=== PATIENT | female | born 1965 | race Caucasian/White ===

== ENCOUNTER 2024-09-30 13:26 | Emergency (ER) | payer BC, SELFPAY ==
--- NOTE | ~2024-09-30 | CT_ITS ---
EXAMINATION: CT ANGIOGRAM HEAD AND NECK CLINICAL INFORMATION: Nausea and vomiting, dizziness, history of brain aneurysm. COMPARISON: None available. TECHNIQUE: Noncontrast axial imaging of the head was performed. This was followed by test bolus sequences and head and neck intravenous bolus administration 65 mL of Omnipaque 350. Helical imaging was performed in the axial plane from the aortic arch to the skull vertex. The data was processed at the certified performance technologist's workstation for generation of MIP sequences. Angled MIPs and volume rendered reformatted images were also generated at an offline 3D workstation. Stenoses are assessed in accordance with NASCET criteria unless otherwise indicated. This CT examination was performed using dose optimization techniques as appropriate, variously including the following: *Automated exposure control *Adjustment of mA and/or kV according to patient size (this includes techniques or standardized protocols for targeted exams where dose is matched to indication/reason for exam; i.e. extremities or head) *Use of iterative reconstruction technique FINDINGS: NONCONTRAST HEAD CT: There is no evidence of intracranial hemorrhage or extra-axial fluid collection. There is no mass effect, or edema. No CT evidence of acute territorial infarct. Ventricles, sulci, and cisterns are normal in size and configuration for patient age. No hydrocephalus. No midline shift. No significant white matter abnormalities. Partial empty sella. Globes and orbital contents image normally. No extracranial soft tissue abnormalities. The paranasal sinuses, mastoid air cells, and tympanic cavities are normally aerated. No suspicious bony abnormalities. NECK CTA: -AORTIC ARCH: Normal in caliber. 2-vessel branching pattern. -GREAT VESSEL ORIGINS: Widely patent. No stenosis. -RIGHT COMMON CAROTID ARTERY: Normal in course and caliber to the level of the bifurcation. -CERVICAL RIGHT INTERNAL CAROTID ARTERY: Normal opacification without focal stenosis or occlusion. -LEFT COMMON CAROTID ARTERY: Normal in course and caliber to the level of the bifurcation. -CERVICAL LEFT INTERNAL CAROTID ARTERY: Normal opacification without focal stenosis or occlusion. -CERVICAL RIGHT VERTEBRAL ARTERY: Codominant. Normal in course and caliber into the skull base. -CERVICAL LEFT VERTEBRAL ARTERY: Codominant. Normal in course and caliber into the skull base. OTHER, SOFT TISSUES: -No lymphadenopathy or mass. No abnormal fluid collection or soft tissue swelling. -Normal thyroid. -Imaged superior mediastinal structures normal. -Imaged lung apices clear. CTA OF THE BRAIN: -INTRACRANIAL INTERNAL CAROTID ARTERIES: Mild short segment fusiform dilatation of the left cavernous ICA up to 4.7 mm, spanning a length of approximately 10 mm. Intracranial ICAs are otherwise normal in course and caliber. -RIGHT ANTERIOR CEREBRAL ARTERY: Normal A1 segment.. Normal arborization of the distal segments. -LEFT ANTERIOR CEREBRAL ARTERY: Normal A1 segment.. Normal arborization of the distal segments. -ANTERIOR COMMUNICATING ARTERY: Normal. -RIGHT MIDDLE CEREBRAL ARTERY: Normal M1 segment of the MCA without focal stenosis or occlusion. Normal arborization of the distal segments. -LEFT MIDDLE CEREBRAL ARTERY: Normal M1 segment of the MCA without focal stenosis or occlusion. Normal arborization of the distal segments. -RIGHT VERTEBRAL ARTERY V4: Normal in course and caliber. There is a right AICA/PICA. -LEFT VERTEBRAL ARTERY V4: Normal in course and caliber. Normal PICA branch. -BASILAR ARTERY: Normal without focal stenosis or occlusion. Normal appearance of the proximal superior cerebellar arteries. Normal basilar tip. -RIGHT POSTERIOR CEREBRAL ARTERY: Normal P1 segment. Normal opacification of the distal SHOE POLISHER segments. -LEFT POSTERIOR CEREBRAL ARTERY: Normal P1 segment. Normal opacification of the distal SHOE POLISHER segments. -POSTERIOR COMMUNICATING ARTERIES: Not well seen. Normal opacification of the superior sagittal, straight, transverse, and sigmoid sinuses. No venous thrombosis. No space-occupying hemorrhage or definite evolving infarct. CT/CT angio head neck IMPRESSION: NONCONTRAST HEAD CT: 1. No evidence of intracranial hemorrhage or mass effect. No CT evidence of acute territorial infarct. CTA NECK: 1. No evidence of significant stenosis, occlusion, dissection, or aneurysm of the major cervical arterial vasculature. CTA HEAD: 1. No evidence of significant stenosis, occlusion, or dissection of the major intracranial arterial vasculature. 2. 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 This spans a length of approximately 10 mm. 3. There are patent major cortical and dural venous sinuses. Electronically signed by: Chon Stevens MD 09/30/2024 04:48 PM EDT
[2024-09-30 13:32] VITALS: BP 136/78; PULSE 116; RESP 18; TEMP 36.2; O2SAT 100; BMI 20.8
--- NOTE | 2024-09-30 13:39 | ECG_ITS ---
Test Reason : dizziness Blood Pressure : */* mmHG Vent. Rate : 77 BPM Atrial Rate : 77 BPM P-R Int : 132 ms QRS Dur : 84 ms QT Int : 378 ms P-R-T Axes : 37 49 62 degrees QTcB Int : 427 ms Normal sinus rhythm Septal infarct , age undetermined Abnormal ECG No previous ECGs available Referred By: Ramon James Electronically Signed By: HALLE KOCH MD
--- NOTE | 2024-09-30 13:39 | ED_ITS ---
HPI - Neuro Symptoms/Deficit General Chief Complaint: Neuro Symptoms/Deficit Stated Complaint: veritgo sweats confusion Time Seen by Provider: 09/30/24 14:47 Source: patient Mode of arrival: ambulatory Limitations: no limitations History of Present Illness ED Provider: ASHUTOSH HPI Narrative: 58 yo female no sig PMH follows at [facility] with Dr. Shrestha for 3 very small brain aneurysms no prior procedures who notes started with sudden onset of room spinning and feeling very nauseated. She has mild head pressure she denies numbness, weakness, vision changes, URI symptoms, CP/SOB she states she just doesn't feel good. The symptoms come and go are very rapid. She also fell last night but no headstrike no LOC. She states she just doesn't feel good. No GIB or infectious symptoms reported. Onset (ago): day(s) (since Sunday) Location: other History of same: No Severity: moderate Quality: intermittent Relieving factors: none Exacerbating factors: other (movement) Context: sudden onset On Anticoagulants: No Associated symptoms: nausea/vomiting and other (fatigue, poor malaise, dizziness) Treatments Prior to Arrival: other (ibuprofen) Related Data Allergies Allergy/AdvReac Type Severity Reaction Status Date / Time No Known Allergies Allergy Verified 09/30/24 13:36 Review of Systems 2 Review of Systems: Constitutional : No Fever, No Chills, pos Fatigue ENT/Mouth : No sore throat, No Rhinorrhea Eyes: No Eye Pain, No Swelling, No Redness Cardiovascular : No Chest Pain, No SOB, No Dyspnea on Exertion Respiratory : No Cough, No Sputum Gastrointestinal : No Nausea, No Vomiting, No Diarrhea, No abdominal Pain Genitourinary : No Dysuria, No Urinary Frequency, No Hematuria, Musculoskeletal : No joint pain, No Myalgias, No Joint Swelling Skin : No Skin Lesions, No rash Neuro : No Weakness, No Numbness, pos Dizziness, positive Headache Psych : No Anxiety/Panic, No Depression All other systems reviewed and are negative [facility] Past Medical History Attestation statement: The following information was validated with the patient. Source: old records reviewed Medical History (Updated 10/01/24 @ 00:00 by Suzanne Bazan) Brain aneurysm Social History Social History (Updated 09/30/24 @ 15:10 by Germania Mcdaniel DO) Patient Tobacco Use Status: Never used Tobacco Smoked in Last 30 Days: No Advance Directives: No Advance Directives Information Provided: Yes Do you have a plan to hurt others: No Plan Patient : No Physical Exam 2 Vital Signs: Vital Signs: Last Vital Signs Temp 98.4 F 09/30/24 19:33 Pulse 78 09/30/24 19:33 Resp 18 09/30/24 19:33 BP 141/74 H 09/30/24 19:33 Pulse Ox 100 09/30/24 13:32 O2 Del Method Room Air 09/30/24 13:32 BMI result Body Mass Index 20.8 Appearance: Alert. Oriented X3. No acute distress. Eyes: Pupils equal, round and reactive to light. ENT: Pharynx normal. Neck: Normal inspection. Neck supple. CVS: Normal heart rate and rhythm. Pulses normal. Respiratory: No respiratory distress. Breath sounds normal. Abdomen: Soft and nontender. Skin: Skin warm and dry. Normal skin color. Normal skin turgor. Extremities: No lower extremity edema. No calf ttp Neuro: Oriented X 3. No motor deficit. No sensory deficit. CN2-12 intact Course Course Course Narrative: RME: 58 yold female presents to the ED for dizziness vertigo lightheadedness and increased confusion for the past 3 days. Patient states she passed out last night. Patient states history of brain aneurysm. Patient denies any change in vision. No obvious neuro deficits on exam but patient explained extreme dizziness. Charge nurse made aware. Labs EKG head CT ordered. Patient is having symptoms for 3 days would not called stroke due to symptoms for 3 days. Medications Administered Discontinued Medications Generic Name Dose Route Start Last Admin Trade Name Marceloq PRN Reason Stop Dose Admin Lactated Ringer's 1,000 mls @ 999 mls/hr 09/30/24 15:05 09/30/24 17:10 Lr IV 09/30/24 16:05 Infused .Q1H1M ONE Infusion Lactated Ringer's 1,000 mls @ 999 mls/hr 09/30/24 17:08 09/30/24 18:24 Lr IV 09/30/24 18:08 Infused .Q1H1M ONE Infusion Iohexol 100 ml 09/30/24 16:23 09/30/24 16:23 Iohexol 350 Mg/Ml 100 Ml Infus..Btl IV 09/30/24 16:24 65 ml ONCE ONE Administration Meclizine HCl 25 mg 04/15/25 17:08 09/30/24 17:22 Meclizine Hcl 25 Mg Tablet PO 09/30/24 17:09 25 mg ONCE ONE Administration Ondansetron HCl 4 mg 09/30/24 15:05 09/30/24 15:18 Ondansetron Hcl 4 Mg/2 Ml Vial IVPUSH 09/30/24 15:06 4 mg ONCE ONE Administration Medical Decision Making Medical Decision Making [facility] Narrative: 58 yo female with PMH of stable brain aneurysms and 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 She has no CP/SOB or GIB symptoms at this time she has no localizing signs will obtain labs, EKG, CTA of head and neck. Her symptoms are really I don't feel well and dizziness Differential Diagnosis Differential Diagnoses: The differential diagnosis associated with the presentation includes infectious or metabolic source, aneurysm, anemia, dehydration Admission/Observation Consideration of admission/observation: Escalation of care including admission/observation considered feels better stable for DC up and walking I did offer admission for MRI but she declines last aneurysm was 1.9 on MRA but she is going to call her NSGY doctor in the AM declines admission Lab Data [facility] Lab Attestation statement: I reviewed the patient's lab results. 09/30/24 14:05 09/30/24 14:05 Labs: Lab Results 09/30/24 09/30/24 Range/Units 14:05 15:17 WBC 5.8 (4.8-10.8) X10*3/uL RBC 4.40 (4.20-5.50) X10*6/uL Hgb 13.2 (12.0-16.0) g/dl Hct 36.7 L (37.0-47.0) % MCV 83.4 (80.0-98.0) fL MCH 30.0 (27.0-33.0) pg MCHC 36.0 H (31.0-35.0) g/dl RDW 12.5 (11.0-16.0) % Plt Count 156 L (160-400) X10*3/uL MPV 9.1 L (9.4-12.3) fL Immature Gran % (Auto) 0.2 (0.0-0.4) % Neut % (Auto) 67.4 (45-73) % Lymph % (Auto) 22.8 (20-40) % Snyder % (Auto) 8.1 (2-11) % Eos % (Auto) 1.0 (0-4) % Baso % (Auto) 0.5 (0-2) % Lymph # (Auto) 1.3 (1.2-4.9) X10*3/uL Snyder # (Auto) 0.5 (0.1-1.2) X10*3/uL Eos # (Auto) 0.1 (0.0-0.4) X10*3/uL Baso # (Auto) 0.0 (0.0-0.2) X10*3/uL Abs Immat Gran (auto) 0.01 (0.00-0.03) X10*3/uL Absolute Neuts (auto) 3.9 (2.0-8.3) x10*3/uL Absolute Nucleated RBC 0.000 (0.0-0.012) X10*3/uL Nucleated RBC % (auto) 0.0 (0.0-0.2) /100WBC PT 10.9 (10.9-12.4) SEC INR 0.9 (0.9-1.1) APTT 27.2 (26.0-36.8) SEC Sodium 136 (135-145) mmol/L Potassium 4.4 (3.3-5.1) mmol/L Chloride 106 (96-108) mmol/L Carbon Dioxide 18 L (22-29) mmol/L Anion Gap 16 (12-20) BUN 17 H (9-16) mg/dL Creatinine 0.92 (0.5-1.4) mg/dL Estim Creat Clear Calc 39.6 Estimated GFR > 60 Random Glucose 77 (60-115) mg/dL Calcium 9.8 (8.4-10.2) mg/dL Total Bilirubin 1.3 H (0.0-1.0) mg/dL AST 24 (5-31) U/L ALT 10 (0-31) U/L Alkaline Phosphatase 91 (39-117) U/L Troponin I High Sens < 2.7 (<3.5-17.0) ng/L C-Reactive Protein 0.35 (< or = 0.50) mg/dL Total Protein 7.2 (6.5-8.0) g/dL Albumin 4.3 (3.5-5.0) g/dL Influenza Type A (PCR) NEGATIVE (Negative) Influenza Type B (PCR) NEGATIVE (Negative) RSV RNA Qual (PCR) NEGATIVE (Negative) SARS-CoV-2 RNA (RT-PCR) NEGATIVE (Negative) Independent Interpretation I performed an independent interpretation of an: EKG and CT Scan (aneurysm noted) Interpretation: Rate: 77 Rhythm:NSR [place]: normal Normal P waves. Normal LEON. Normal QRS complex. ST T wave : no VAL, inverted t wave V1 qTC: 427 prior studies: no acute ischemia The study has been interpreted contemporaneously by me. . Radiology Impression Discussion of test interpretation with radiology: I have reviewed the radiologist's reading. Independent Historian Clinical information obtained from an independent historian. History obtained from or confirmed by: Other (family) Discharge Plan Discharge Clinical Impression: Dizziness Patient Disposition: Home, Self-Care Instructions: Dizziness (ED) Additional Instructions: at this time labs reassuring normal ortho vital signs CTA shows aneurysm but no leakage and no stroke if you feel worse or change your mind you can come back at any time for admission and MRI call your doctor tomorrow AM CT/CT angio head neck IMPRESSION: NONCONTRAST HEAD CT: 1. No evidence of intracranial hemorrhage or mass effect. No CT evidence of acute territorial infarct. CTA NECK: 1. No evidence of significant stenosis, occlusion, dissection, or aneurysm of the major cervical arterial vasculature. CTA HEAD: 1. No evidence of significant stenosis, occlusion, or dissection of the major intracranial arterial vasculature. 2. 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 This spans a length of approximately 10 mm. 3. There are patent major cortical and dural venous sinuses. Interventions: ED Discharge Assessment Last Done: 09/30/24 19:33 Discharge Date/Time: 09/30/24 19:34 Print Language: Belizean
[2024-09-30 14:09] LABS: MANUAL DIFF FLAG NO
[2024-09-30 14:12] LABS: Basophils Percent Auto 0.5 % (0-2); Eosinophils Absolute Auto 0.1 X10*3/uL (0.0-0.4); Hematocrit 36.7 % (37.0-47.0); Hemoglobin 13.2 g/dl (12.0-16.0); Imm Gran Abs Auto 0.01 X10*3/uL (0.00-0.03); Imm Gran Pct Auto 0.2 % (0.0-0.4); Lymphocytes Absolute Auto 1.3 X10*3/uL (1.2-4.9); Lymphocytes Percent Auto 22.8 % (20-40); Mean Corpuscular Volume 83.4 fL (80.0-98.0); Mean Platelet Volume 9.1 fL (9.4-12.3); Monocytes Absolute Auto 0.5 X10*3/uL (0.1-1.2); Monocytes Percent Auto 8.1 % (2-11); Neutrophils Absolute Auto 3.9 x10*3/uL (2.0-8.3); Neutrophils Percent Auto 67.4 % (45-73); Platelet Count 156 X10*3/uL (160-400); Red Cell Distribution Width 12.5 % (11.0-16.0); White Blood Count 5.8 X10*3/uL (4.8-10.8)
[2024-09-30 14:23] LABS: INTERNATIONAL NORM RATIO 0.9 (0.9-1.1); Prothrombin Time 10.9 SEC (10.9-12.4)
[2024-09-30 14:26] LABS: Partial Thromboplastin Time 27.2 SEC (26.0-36.8)
[2024-09-30 14:35] LABS: Anion Gap 16 (12-20)
[2024-09-30 14:38] LABS: Alanine Aminotransferase 10 U/L (0-31); Albumin Level 4.3 g/dL (3.5-5.0); Aspartate Amino Transferase 24 U/L (5-31); Bilirubin Total 1.3 mg/dL (0.0-1.0); Blood Urea Nitrogen 17 mg/dL (9-16); Calcium 9.8 mg/dL (8.4-10.2); Carbon Dioxide 18 mmol/L (22-29); Chloride 106 mmol/L (96-108); Creatinine Clr Calc Pharmacy 39.6; Estimated Glomerular Filt Rate > 60; Glucose Random 77 mg/dL (60-115); Potassium 4.4 mmol/L (3.3-5.1); Sodium 136 mmol/L (135-145); Total Protein 7.2 g/dL (6.5-8.0)
[2024-09-30 14:48] LABS: Troponin-I High Sensitivity < 2.7 ng/L (<3.5-17.0)
[2024-09-30] MEDS: ondansetron HCL 4 MG/2 ML VIAL IVPUSH (15:18)
[2024-09-30] MEDS: Lactated Ringers 1,000 ML 999 ML IV ×2 (15:20→17:23)
[2024-09-30 15:28] LABS: C Reactive Protein 0.35 mg/dL (< or = 0.50)
[2024-09-30 16:05] LABS: Influenza A PCR NEGATIVE (Negative); Influenza B PCR NEGATIVE (Negative); Resp Syncy Virus RNA Qual PCR NEGATIVE (Negative); SARS COV2 PCR INHOUSE NEGATIVE (Negative)
[2024-09-30] MEDS: iohexoL 350 MG/ML 100 ML INFUS..BTL IV (16:23)
[2024-09-30 16:51] LABS: Alkaline Phosphatase 91 U/L (39-117)
[2024-09-30 17:07] VITALS: BP 121/62; PULSE 81
[2024-09-30 17:08] VITALS: BP 126/69; BP 141/74; PULSE 78; PULSE 80
[2024-09-30] MEDS: Meclizine HCl 25 MG TABLET PO (17:22)
--- OUTSIDE RECORDS SUMMARY | 2024-09-30 17:59 | XMS_ITS ---
Author Name [facility] Organization Unknown Care Team Organization Name Specialty Phone Email Start Date End [facility] te [facility] the [facility] ([facility]) 05/02/2024
--- OUTSIDE RECORDS SUMMARY | 2024-09-30 17:59 | XMS_ITS | Clinical Summary ---
Author Organization [facility] Address [address] [place] [address] Care Team Providers Care Tractor Technician Name Role Phone Eboni Medellin MD Primary Care Provider [phone] Allergies No known active allergies Medications Medication Sig Dispensed Refills Start Date End Date Status Riboflavin 400 MG CAPS Take 400 mg by mouth daily. 30 capsule 3 03/07/2023 Active Ubrogepant (Ubrelvy) 100 MG TABS Take 100 mg by mouth daily. 30 tablet 3 06/05/2023 Active Social History Tobacco Use Types Packs/Day Years Used Date Smoking Tobacco: Never Assessed Sex and Gender Information Value Date Recorded Sex Assigned at Female 05/23/2023 11:13 AM EST Gender Identity Not on file Sexual Orientation Not on file Job Start Date Occupation Industry Not on file Not on file Not on file Last Filed Vital Signs Vital Sign Reading Time Taken Comments Blood Pressure 113/77 03/07/2023 9:24 AM EDT Pulse 86 03/07/2023 9:24 AM EDT Temperature - - Respiratory Rate 16 03/07/2023 9:24 AM EDT Oxygen Saturation 95% 03/07/2023 9:24 AM EDT Inhaled Oxygen Concentration - - Weight 42.7 kg (94 lb 3.2 oz) 03/07/2023 9:24 AM EDT Height 144.8 cm (4' 9 ) 03/07/2023 9:24 AM EDT Body Mass Index 20.38 03/07/2023 9:24 AM EDT Plan of Treatment Health Maintenance Due Date Last Done Comments Hepatitis C Screening 1965 COVID-19 Vaccine (#1) 05/15/1964 Depression Screening 1975 Preventative Health Evaluation 11/12/1981 Cervical Cancer Screening (P ap Smear) 11/12/1984 Colon Cancer Screening (Colonoscopy) 11/12/2008 Breast Cancer Screening (Mammogram) 11/12/2013 Shingrix-Zoster Vaccine (1 of 2) 11/12/2013 DTap / Tdap / Td (2 - Td or Tdap) 02/16/2022 012 Influenza Vaccine (#1) 2024 RSV Adult > 60+ Yrs or Pregn ant (1 - 1-dose 75+ series) 11/12/2038 Hepatitis B Vaccines Aged Out No long er eligible based on patient's age to complete this topic Pneumococcal Vaccine Aged Out No long er eligible based on patient's age to complete this topic RSV Ped < 20 months Aged Out No longe r eligible based on patient's age to complete this topic Care Teams Tractor Technician Relationship Specialty Start Date End Date Eboni Medellin MD PCP - General Internal Medicine 01/29/23
--- OUTSIDE RECORDS SUMMARY | 2024-09-30 17:59 | XMS_ITS | Encounter Summary ---
Author Organization [facility] Address [address] [place] [address] Care Team Providers Care Spinner Tender Name Role Phone Eboni Medellin Primary Care Provider [phone] Encounter Details Date Type Department Care Team (Late st Contact Info) Description 07/18/2023 Telephone [facility] Interventional Radiology [address] [place] [id number] Marisa Bolden Social History Tobacco Use Types Packs/Day Years Used Date Smoking Tobacco: Never Assessed Comments Unknown Sex and Gender Information Value Date Recorded Sex Assigned at Female 08/06/2023 3:36 PM EST Legal Sex Female 2:42 PM EST Gender Identity Female 08/06/2023 3:36 PM EST Sexual Orientation Straight 08/06/2023 3: 36 PM EST documented as of this encounter Plan of Treatment Not on file documented as of this encounter Visit Diagnoses Not on filedocumented in this encounter Care Teams Spinner Tender Relationship Specialty Start Date End Date Eboni Medellin PCP - General Internal Medicine 07/13/23 documented as of this encounter
--- OUTSIDE RECORDS SUMMARY | 2024-09-30 17:59 | XMS_ITS | Referral Summary ---
Author Organization [facility] Address [address] [place] [address] Care Team Providers Care Teletypewriter Installer Name Role Phone Eboni Medellin Primary Care Provider [phone] Allergies No known active allergies Medications Ubrelvy 100 mg tablet Take 100 mg by mouth daily as needed. 06/05/2023 Active riboflavin, vitamin B2, 400 mg tablet Take by mouth daily. 07/04/2023 Active ibuprofen (MOTRIN) 200 mg tablet Take 200 mg by mouth every 6 hours as needed. Active multivitamin (THERAGRAN) tablet Take 1 tablet by mouth once a day. Active Social History Tobacco Use Types Packs/Day Years Used Date Smoking Tobacco: Never Smokeless Tobacco: Never Tobacco Cessation:Counseling Given: Not Answered Alcohol Use Standard Drinks/Week Comments Yes 0 (1 standard drink = 0.6 oz pur e alcohol) 1/mo Comments Unknown Sex and Gender Information Value Date Recorded Sex Assigned at Female 08/06/2023 3:36 PM EST Legal Sex Female 2:42 PM EST Gender Identity Female 08/06/2023 3:36 PM EST Sexual Orientation Straight 08/06/2023 3: 36 PM EST Last Filed Vital Signs Vital Sign Reading Time Taken Comments Blood Pressure 138/82 08/07/2023 1:54 PM EST Pulse 84 08/07/2023 1:54 PM EST Temperature 36.1 ??C (97 ??F) 08/07/2023 1:54 PM EST Respiratory Rate - - Oxygen Saturation 98% 08/07/2023 1:54 PM EST Inhaled Oxygen Concentration - - Weight 43.5 kg (96 lb) 08/07/2023 1:54 PM EST Height 144.8 cm (4' 9 ) 08/07/2023 1:54 PM EST Body Mass Index 20.77 08/07/2023 1:54 PM EST Plan of Treatment Not on file Insurance BCBS OUT OF STATE PPO Care Teams Teletypewriter Installer Relationship Specialty Start Date End Date Lacie Mikefrankie PCP - General Internal Medicine 07/13/23
--- OUTSIDE RECORDS SUMMARY | 2024-09-30 17:59 | XMS_ITS | Clinical Summary ---
Author Organization [facility] Address [address] [place] [address] Care Team Providers Care Educational Audiologist Name Role Phone Eboni Medellin Primary Care Provider [phone] Allergies No known active allergies Medications Ubrelvy 100 mg tablet Take 100 mg by mouth daily as needed. 06/05/2023 Active riboflavin, vitamin B2, 400 mg tablet Take by mouth daily. 07/04/2023 Active ibuprofen (MOTRIN) 200 mg tablet Take 200 mg by mouth every 6 hours as needed. Active multivitamin (THERAGRAN) tablet Take 1 tablet by mouth once a day. Active Family History Medical History Relation Name Comments COPD Father Hyperlipidemia Father Hypertension Father Kidney cancer Father Heart disease Mother Hypertension Mother Relation Name Status Comments Father Mother Social History Tobacco Use Types Packs/Day Years [...] 08/07/2023 1:54 PM EST Plan of Treatment Health Maintenance Due Date Last Done Comments Cervical Cancer Screening 1963 Cologuard 1963 Colon Cancer Screening 1963 Colonoscopy 1963 FOBT / Fit Test 1963 HIV Screening 1963 HPV and Pap Smear 1963 Hepatitis C Screening 1963 Pap Smear 1963 Sigmoidoscopy 1963 Mammogram 2003 Pneumococcal Vaccine: 50+ Years (1 of 1 - PCV) 11/12/2013 Zoster Vaccines (1 of 2) 11/12/2013 DTaP,Tdap,and Td Vaccines (2 - Td or Tdap) 02/16/2022 02/17/2012 COVID-19 Vaccine (4 - 2023-2 5 season) 2024 05/23/2021, 08/14/2020, 07/24/2020 Alcohol/Substance Use Screening 06/18/2024 Depression Screening and Follow-Up 06/18/2024 Social Drivers of Health Annual Screening 06/18/2024 Influenza Vaccine (Season Ended) 2025 RSV Vaccine (60+ years old a nd patients) (1 - 1-dose 75+ series) 11/12/2038 Hepatitis B Vaccines Aged Out No long er eligible based on patient's age to complete this topic Insurance BCBS OUT OF STATE PPO Care Teams Educational Audiologist Relationship Specialty Start Date End Date MedellinEboni PCP - General Internal Medicine 07/13/23
--- OUTSIDE RECORDS SUMMARY | 2024-09-30 17:59 | XMS_ITS | Encounter Summary ---
Author Organization [facility] Address [address] [place] [address] Care Team Providers Care Shop Worker Name Role Phone Eboni Medellin Primary Care Provider [phone] Encounter Details Date Type Department Care Team (Latest Contact Info) Description 09/01/2023 Prime Focus Technologiest Message [facility] Neuro Interventional Radiology [address], [place] [phone] Theodora Aparicio, DOMINIC [address] [place], [place] [phone] Cancel appointment Social History Tobacco Use Types Packs/Day Years Used Date Smoking Tobacco: Never Smokeless Tobacco: Never Alcohol Use Standard Drinks/Week Comments Yes 0 [...] on filedocumented in this encounter Care Teams Shop Worker Relationship Specialty Start Date End Date Eboni Medellin PCP - General Internal Medicine 07/13/23 documented as of this encounter
--- OUTSIDE RECORDS SUMMARY | 2024-09-30 17:59 | XMS_ITS | Encounter Summary ---
Author Organization [facility] Address [address] [place] [address] Care Team Providers Care Char Filter Tank Tender Head Name Role Phone Eboni Medellin Primary Care Provider [phone] Encounter Details Date Type Department Care Team (Late st Contact Info) Description 02/05/2024 eMinort Message [facility] Neuro Interventional Radiology [address], [place] [phone] Theodora Aparicio, DOMINIC [address] [place], [place] [phone] Test results Social History Tobacco Use Types Packs/Day Years [...] on filedocumented in this encounter Care Teams Char Filter Tank Tender Head Relationship Specialty Start Date End Date Eboni Medellin PCP - General Internal Medicine 07/13/23 documented as of this encounter
[2024-09-30 19:33] VITALS: BP 141/74; PULSE 78; RESP 18; TEMP 36.9
== END 2024-09-30 19:34 | disposition home or self-care (01) ==
PROVIDERS: Physician Assistant; Emergency Provider Emergency Medicine; PCP Internal Medicine
DX: R42 Dizziness and giddiness (principal); I67.1 Cerebral aneurysm, nonruptured; Z03.818 Encounter for observation for suspected exposure to other biological agents ruled out
CPT/HCPCS: 0241U; 36415; 70496; 70498; 80053; 84484; 85025; 85610; 85730; 86140; 93005; 96361; 96374; 99284; 99285; J2405; J7120; Q9967

== ENCOUNTER → 2024-09-30 13:39 | Outpatient (BNV) | payer BC, SELFPAY | PROVIDERS: Emergency Provider Emergency Medicine; PCP Internal Medicine; Visit Provider Radiology Diagnostic Radiology | DX: I72.0 Aneurysm of carotid artery (principal) | CPT/HCPCS: 70496; 70498 ==

== ENCOUNTER → 2024-09-30 13:39 | Outpatient (BNV) | payer BC, SELFPAY | PROVIDERS: Emergency Provider Emergency Medicine; PCP Internal Medicine; Visit Provider Internal Medicine Cardiovascular Disease | DX: R94.31 Abnormal electrocardiogram [ECG] [EKG] (principal); R42 Dizziness and giddiness | CPT/HCPCS: 93010 ==